=== PATIENT | male | born 1965 | race Two or more races ===

== ENCOUNTER 2020-11-02 05:26 | Day surgery (SDC) | payer BC ==
[2020-10-31 17:43] VITALS: BMI 26.6
[2020-11-02] MEDS ORDERED: MIDAZOLAM HCL 2 MG/2 ML SINGLE DOSE VIAL ONE ×2 (12:41→12:48)
[2020-11-02] MEDS ORDERED: BUPIVACAINE HCL/PF 0.5% (5 MG/ML) 30 ML VIAL IJ ONE (12:55)
[2020-11-02] MEDS ORDERED: LIDOCAINE 1%/EPI 1:100000 (20 ML MULTI DOSE VIAL) IJ ONE (12:55)
[2020-11-02 14:55] VITALS: BP 131/78; PULSE 78; TEMP 98.6
== END 2020-11-02 16:30 | disposition home or self-care (01) ==
LOC: JASU-SURG 05:26
PROVIDERS: ATTEND Surgery
PROC: 0JB50ZZ Excision of Left Neck Subcutaneous Tissue and Fascia, Open Approach (ICD-10-PCS; principal; 2020-11-02 11:00)
DX: D21.0 Benign neoplasm of connective and other soft tissue of head, face and neck (principal); E11.9 Type 2 diabetes mellitus without complications
CPT/HCPCS: 88304-TC